=== PATIENT | female | born 1965 | race Caucasian/White ===

== ENCOUNTER 2017-09-16 10:21 | Emergency (ER) | payer OTHER ==
[2017-09-16 11:01] VITALS: BP 121/75
--- NOTE | 2017-09-16 11:28 | UC ---
Bite Injury/Animal HPI - HPI Summary HPI Summary: Patient to urgent care today after being bit by a dog while riding her bike. The bike rider did call 911 [facility] responded. Has at this riding the [facility]'s Department has not located the dog or the dog environmental education specialist. The [facility] Department was notified and has not returned our phone call yet. Patient has 2 puncture wounds and some abrasions to her outer left calf. - History of Current Complaint Chief Complaint: UCBiteInjury Stated Complaint: DOG BITE Time Seen by Provider: 09/16/17 11:25 Hx Obtained From: Patient ?: No Pain Intensity: 5 Pain Scale Used: 0-10 Numeric Onset/Duration: Sudden Onset Type of Bite: Pet Has Animal Been Immunized?: Unknown Character: Puncture Animal Available for Observation: No Animal Control Notified: Yes - Allergies/Home Medications Allergies/Adverse Reactions: Allergies Allergy/AdvReac Type Severity Reaction Status Date / Time No Known Allergies Allergy Verified 09/16/17 10:56 PMH/Surg Hx/FS Hx/Imm Hx Previously Healthy: Yes - Surgical History Surgical History: None - Family History Known Family History: Positive: None - Social History Occupation: Employed Full-time Lives: With Family Alcohol Use: Occasionally Substance Use Type: None Smoking Status (MU): Never Smoked Tobacco - Immunization History Most Recent Tetanus Shot: [id number] Review of Systems Constitutional: Negative Skin: Other - Dog bite with puncture wounds and abrasions to the upper outer left calf Eyes: Negative ENT: Negative Respiratory: Negative Cardiovascular: Negative Gastrointestinal: Negative Genitourinary: Negative Motor: Negative Neurovascular: Negative Musculoskeletal: Negative Neurological: Negative Psychological: Negative Is Patient Immunocompromised?: No All Other Systems Reviewed And Are Negative: Yes Physical Exam Triage Information Reviewed: Yes Appearance: Well-Appearing, No Pain Distress, Well-Nourished Vital Signs: Initial Vital Signs Temp 98.3 F 09/16/17 10:56 Pulse 59 09/16/17 10:56 Resp 16 09/16/17 10:56 BP 121/75 09/16/17 10:56 Pulse Ox 100 09/16/17 10:56 Vital Signs Reviewed: Yes Eye Exam: Normal Eyes: Positive: Conjunctiva Clear ENT Exam: Normal ENT: Positive: Normal ENT inspection, Hearing grossly normal. Negative: Trismus , Muffled voice, Hoarse voice Dental Exam: Normal Neck exam: Normal Neck: Positive: Supple, Nontender Respiratory Exam: Normal Respiratory: Positive: Chest non-tender, No accessory muscle use Cardiovascular Exam: Normal Cardiovascular: Positive: RRR, Pulses Normal, Brisk Capillary Refill Musculoskeletal Exam: Normal Musculoskeletal: Positive: Strength Intact, ROM Intact, No Edema Neurological Exam: Normal Neurological: Positive: Alert Psychological Exam: Normal Skin Exam: Normal Bite Injury Course/Dx - Course Course Of Treatment: Wounds up and washed dressings were then applied. Tetanus is up-to-date patient will be started on Augmentin. Patient advised to follow up with health department tomorrow if they have not contacted her and go to emergency department should she need rabies vaccine and immunoglobulin. Follow with pcp - Differential Dx/Diagnosis Provider Diagnoses: Dog bite to left calf Discharge - Sign-Out/Discharge Documenting (check all that apply): Discharge/Admit/Transfer - Discharge Plan Condition: Stable Disposition: HOME Prescriptions: Amoxicillin/Clavulanate TAB* [Augmentin TAB 875*] 875 mg PO BID #20 tab Patient Education Materials: Animal Bite (ED), Rabies (ED), Acute Wounds (ED) Referrals: Tamela Mora MD [Primary Care Provider] - If Needed Additional Instructions: Please follow with the [facility] Sunday - Billing Disposition and Condition Condition: STABLE Disposition: Home
[2017-09-16] MEDS ORDERED: Ibuprofen TAB* 600 MG PO ONE (11:38)
== END 2017-09-16 12:21 | disposition home or self-care (01) ==
LOC: UCCORT 10:21
DX: S81.852A Open bite, left lower leg, initial encounter (principal); W54.0XXA Bitten by dog, initial encounter; Y93.55 Activity, bike riding; Y92.9 Unspecified place or not applicable
CPT/HCPCS: 99203; A9270-GY; G0463